=== PATIENT | female | born 1990 | race Caucasian/White ===

== ENCOUNTER 2018-06-18 14:28 | Emergency (ER) | payer SELFPAY ==
[2018-06-18] MEDS ORDERED: Dicyclomine 10 MG Cap PO ONE (15:08)
[2018-06-18] MEDS ORDERED: Sodium Chloride 0.9% 10 ML Syringe FLUSH PRN (15:08)
[2018-06-18] MEDS ORDERED: Sodium Chloride 0.9% 1,000 ML IV ONE (15:08)
[2018-06-18] MEDS ORDERED: Ondansetron 4 MG/2 ML SDV IVPUSH ONE ×2 (15:08→19:03)
--- NOTE | 2018-06-18 15:18 | EDM.PDOC ---
<Lizzette Smith - Last Filed: 06/18/18 17:08> ED HPI GENERAL MEDICAL PROBLEM - General Chief Complaint: Abdominal Pain Stated Complaint: ABD PAIN AND BLOOD IN STOOL Time Seen by Provider: 06/18/18 14:45 Source of Information: Reports: Patient, RN Notes Reviewed History Limitations: Reports: No Limitations - History of Present Illness INITIAL COMMENTS - FREE TEXT/NARRATIVE: Marc is a 27 year old female who presents to the ED for abdominal pain and BRB in her stool. She states that yesterday she developed diarrhea, emesis x1, and suprapubic abdominal pain that would occasionally radiate up to the epigastric region. She states this pain is a constant 6/10 and at times it is 10 /10. She thought that she maybe had some blood in her stool yesterday. She was restless all night with the abdominal pain. Today, she states there was a significant amount of BRB when she used the bathroom, and then had dark black stool. The abdominal pain is made worse with eating and lying down flat. She has tried peptobismol with no relief. Patient states that she has felt bloated for the past two weeks. She was recently treated for bronchitis with methylpredisone which she finished two days ago. She has also taken two xanax to help calm her anxiety in the last two days. She takes OC seasonique and citalopram daily. Patient denies any recent NSAID use. Her mother does suffer from Chron's disease. She denies any sick contacts. She states her immunizations are up to date. Patient denies any fever, chills, nightsweats. Her recent bronchitis has resolved. She denies chest pain, but endorses shortness of breath with acute pain attacks. She has had no vomiting today. She denies any dysuria, urinary urgency or hematuria. Her LMP was 1 mo ago. Patient states that she believes she suffers from IBS as she has diarrhea and constipation that waxes and wanes for the past two years, though this has not been diagnosed by a clinician. Abdominal Pain Score (Numeric/FACES): 8 - Related Data Allergies Allergy/AdvReac Type Severity Reaction Status Date / Time bee pollen Allergy Anaphylactic Verified 06/18/18 14:40 Shock Home Meds: Home Meds Acetaminophen/oxyCODONE [Percocet 325-5 MG] 1 tab PO Q4HR PRN #20 tab 06/18/18 [ Rx] Escitalopram [Lexapro] 10 mg PO DAILY 06/18/18 [History] Ondansetron [Zofran ODT] 4 mg PO Q6H PRN #20 tab.dis 06/18/18 [Rx] Past Medical History Psychiatric History: Reports: Anxiety Social & Family History - Tobacco Use Smoking Status *Q: Never Smoker - Caffeine Use Caffeine Use: Reports: Coffee - Recreational Drug Use Recreational Drug Use: No ED ROS GENERAL - Review of Systems Constitutional: Reports: Decreased Appetite. Denies: Fever, Chills, Night Sweats HEENT: Reports: No Symptoms Respiratory: Reports: No Symptoms Cardiovascular: Reports: No Symptoms Endocrine: Reports: No Symptoms GI/Abdominal: Reports: Abdominal Pain (suprapubic and epigastric at times), Black Stool, Bloody Stool, Diarrhea, Decreased Appetite, Distension, Vomiting ( x1 yesterday) : Reports: No Symptoms Musculoskeletal: Reports: No Symptoms Skin: Reports: No Symptoms Neurological: Reports: No Symptoms Psychiatric: Reports: Anxiety ED EXAM, GI/ABD - Physical Exam Exam: See Below Exam Limited By: No Limitations General Appearance: Alert, WD/WN, Mild Distress Respiratory/Chest: No Respiratory Distress, Lungs Clear, Normal Breath Sounds Cardiovascular: Normal Peripheral Pulses, Regular Rate, Rhythm, No Edema, No Gallop, No JVD, No Murmur, No Rub GI/Abdominal Exam: Normal Bowel Sounds, Soft, Tender (suprapubic and epigastric) . No: Rigid, Rebound, Hernia, Mass Back Exam: Normal Inspection. No: CVA Tenderness (L), CVA Tenderness (R) Neurological: Alert, Oriented, Normal Cognition Psychiatric: Anxious, Tearful Skin Exam: Warm, Dry, Intact, Normal Color Course - Vital Signs Text/Narrative:: Patient denies any recent antibiotics or travel. We performed a fecal occult blood test, which was negative. On digital rectal exam, there was virtually no stool or blood seen. patient does have a skin tag at the 6:00 position, which is not bleeding. Internal exam revels no hemorrhoids. We will test the stool for blood if patient is able to have a bowel movement here in the ED. We will go ahead and CT abdomen and pelvis with oral and IV contrast. Last Recorded V/S: Last Vital Signs Temp 96.8 F 06/18/18 14:37 Pulse 84 06/18/18 14:37 Resp 16 06/18/18 14:37 BP 132/90 06/18/18 14:37 Pulse Ox 99 06/18/18 14:37 - Orders/Labs/Meds Labs: Laboratory Tests 06/18/18 06/18/18 06/18/18 Range/Units 15:05 15:05 15:48 WBC 7.92 (3.98-10.04) K/mm3 RBC 4.63 (3.98-5.22) M/mm3 Hgb 12.3 (11.2-15.7) gm/L Hct 37.6 (34.1-44.9) % MCV 81.2 (79.4-94.8) fl MCH 26.6 (25.6-32.2) pg MCHC 32.7 (32.2-35.5) g/dl RDW Std Deviation 40.5 (36.4-46.3) fL Plt Count 341 (182-369) K/mm3 MPV 10.5 (9.4-12.3) fl Neut % (Auto) 61.3 (34.0-71.1) % Lymph % (Auto) 29.2 (19.3-51.7) % Wilson % (Auto) 6.3 (4.7-12.5) % Eos % (Auto) 3.0 (0.7-5.8) Baso % (Auto) 0.1 (0.1-1.2) % Neut # (Auto) 4.85 (1.56-6.13) K/mm3 Lymph # (Auto) 2.31 (1.18-3.74) K/mm3 Wilson # (Auto) 0.50 H (0.24-0.36) K/mm3 Eos # (Auto) 0.24 (0.04-0.36) K/mm3 Baso # (Auto) 0.01 (0.01-0.08) K/mm3 Sodium 139 (136-145) mEq/L Potassium 3.2 L (3.5-5.1) mEq/L Chloride 105 (98-107) mEq/L Carbon Dioxide 23 (21-32) mEq/L Anion Gap 14.2 (5-15) BUN 11 (7-18) mg/dL Creatinine 0.8 (0.55-1.02) mg/dL Est Cr Clr Drug Dosing 99.76 mL/min Estimated GFR (MDRD) > 60 (>60) mL/min BUN/Creatinine Ratio 13.8 L (14-18) Glucose 111 H (74-106) mg/dL Calcium 8.8 (8.5-10.1) mg/dL Total Bilirubin 0.1 L (0.2-1.0) mg/dL AST 20 (15-37) U/L ALT 23 (14-59) U/L Alkaline Phosphatase 61 (46-116) U/L C-Reactive Protein 1.7 H* (<1.0) mg/dL Total Protein 7.4 (6.4-8.2) g/dl Albumin 3.3 L (3.4-5.0) g/dl Globulin 4.1 gm/dL Albumin/Globulin Ratio 0.8 L (1-2) Lipase 171 (73-393) U/L Urine Color Yellow (Yellow) Urine Appearance Clear (Clear) Urine pH 6.0 (5.0-8.0) Ur Specific Hamilton 1.015 (1.005-1.030) Urine Protein Negative (Negative) Urine Glucose (UA) Negative (Negative) Urine Ketones Negative (Negative) Urine Occult Blood Negative (Negative) Urine Nitrite Negative (Negative) Urine Bilirubin Negative (Negative) Urine Urobilinogen 0.2 (0.2-1.0) Ur Leukocyte Esterase Trace H (Negative) Urine RBC 0-5 (0-5) /hpf Urine WBC 5-10 H (0-5) /hpf Ur Epithelial Cells 5-10 H (0-5) /hpf Urine Bacteria Few (FEW) /hpf Urine Mucus Few (FEW) /hpf Urine HCG, Qual (NEGATIVE) C.difficile [id number]-[id number] C. difficile Tox (PCR) 06/18/18 06/18/18 Range/Units 15:48 17:40 WBC (3.98-10.04) K/mm3 RBC (3.98-5.22) M/mm3 Hgb (11.2-15.7) gm/L Hct (34.1-44.9) % MCV (79.4-94.8) fl MCH (25.6-32.2) pg MCHC (32.2-35.5) g/dl RDW Std Deviation (36.4-46.3) fL Plt Count (182-369) K/mm3 MPV (9.4-12.3) fl Neut % (Auto) (34.0-71.1) % Lymph % (Auto) (19.3-51.7) % Wilson % (Auto) (4.7-12.5) % Eos % (Auto) (0.7-5.8) Baso % (Auto) (0.1-1.2) % Neut # (Auto) (1.56-6.13) K/mm3 Lymph # (Auto) (1.18-3.74) K/mm3 Wilson # (Auto) (0.24-0.36) K/mm3 Eos # (Auto) (0.04-0.36) K/mm3 Baso # (Auto) (0.01-0.08) K/mm3 Sodium (136-145) mEq/L Potassium (3.5-5.1) mEq/L Chloride (98-107) mEq/L Carbon Dioxide (21-32) mEq/L Anion Gap (5-15) BUN (7-18) mg/dL Creatinine (0.55-1.02) mg/dL Est Cr Clr Drug Dosing mL/min Estimated GFR (MDRD) (>60) mL/min BUN/Creatinine Ratio (14-18) Glucose (74-106) mg/dL Calcium (8.5-10.1) mg/dL Total Bilirubin (0.2-1.0) mg/dL AST (15-37) U/L ALT (14-59) U/L Alkaline Phosphatase (46-116) U/L C-Reactive Protein (<1.0) mg/dL Total Protein (6.4-8.2) g/dl Albumin (3.4-5.0) g/dl Globulin gm/dL Albumin/Globulin Ratio (1-2) Lipase (73-393) U/L Urine Color (Yellow) Urine Appearance (Clear) Urine pH (5.0-8.0) Ur Specific Hamilton (1.005-1.030) Urine Protein (Negative) Urine Glucose (UA) (Negative) Urine Ketones (Negative) Urine Occult Blood (Negative) Urine Nitrite (Negative) Urine Bilirubin (Negative) Urine Urobilinogen (0.2-1.0) Ur Leukocyte Esterase (Negative) Urine RBC (0-5) /hpf Urine WBC (0-5) /hpf Ur Epithelial Cells (0-5) /hpf Urine Bacteria (FEW) /hpf Urine Mucus (FEW) /hpf Urine HCG, Qual Negative (NEGATIVE) C.difficile [id number]-[id number] Presumptive negative C. difficile Tox (PCR) Negative Meds: Medications Discontinued Medications Generic Name Dose Route Start Last Admin Trade Name Freq PRN Reason Stop Dose Admin Diatrizoate Meglum/Diatrizoate Sod 90 ml 06/18/18 15:30 06/18/18 16:37 Gastrografin 37% PO 06/18/18 15:31 90 ml ONETIME ONE Administration Dicyclomine HCl 20 mg 06/18/18 15:08 06/18/18 15:20 Bentyl PO 06/18/18 15:09 Not Given ONETIME ONE Famotidine 20 mg 06/18/18 15:37 06/18/18 15:52 Pepcid IVPUSH 06/18/18 15:38 20 mg ONETIME ONE Administration Hydromorphone HCl 1 mg 06/18/18 15:20 06/18/18 15:35 Dilaudid IVPUSH 06/18/18 15:21 1 mg ONETIME ONE Administration Hydromorphone HCl 0.5 mg 06/18/18 17:49 06/18/18 17:54 Dilaudid IVPUSH 06/18/18 17:50 0.5 mg ONETIME ONE Administration Sodium Chloride 1,000 mls @ 999 mls/hr 06/18/18 15:08 06/18/18 15:14 Normal Saline IV 06/18/18 16:08 999 mls/hr ONETIME ONE Administration Iopamidol 100 ml 06/18/18 15:30 06/18/18 16:38 Isovue-300 (61%) IVPUSH 06/18/18 15:31 100 ml ONETIME ONE Administration Ondansetron HCl 4 mg 06/18/18 15:08 06/18/18 15:15 Zofran IVPUSH 06/18/18 15:09 4 mg ONETIME ONE Administration Ondansetron HCl 4 mg 06/18/18 19:03 06/18/18 19:09 Zofran IVPUSH 06/18/18 19:04 4 mg ONETIME ONE Administration Sodium Chloride 10 ml 06/18/18 15:08 06/18/18 15:15 Saline Flush FLUSH 10 ml ASDIRECTED PRN Administration Keep Vein Open Sodium Chloride 10 ml 06/18/18 15:30 06/18/18 16:38 Saline Flush FLUSH 06/18/18 15:31 10 ml ONETIME ONE Administration - Re-Assessments/Exams Free Text/Narrative Re-Assessment/Exam: 06/18/18 17:08 Upon re-evaluation, patient states she is doing better but is still feeling very bloated. She states she feels the need to defecate but cannot produce a BM. She is still having intermittent sharp abdominal pains. Departure - Departure Disposition: Home, Self-Care 01 Clinical Impression: Abdominal pain - Discharge Information Prescriptions: Acetaminophen/oxyCODONE [Percocet 325-5 MG] 1 tab PO Q4HR PRN #20 tab PRN Reason: Pain Ondansetron [Zofran ODT] 4 mg PO Q6H PRN #20 tab.dis PRN Reason: Nausea Instructions: Abdominal Pain, Adult, [id number] Referrals: Anabel Elizondo PA-C [Primary Care Provider] - Forms: ED Department Discharge, ED Return to Work/School Form Additional Instructions: Follow-up with PCP this week for a recheck of your symptoms. you were given medication in the ER that can affect your ability to drive and operate machinery. Do not drive or operate machinery within 10 hours of taking prescription narcotic pain medication. Start a probiotic. These are available [id number]. Zofran 1 tab sublingual every 6-8 hours prn nausea. Recommend a bland diet. [place] diet recommendations include soup broth, bread, applesauce, toast etc. may Percocet 1 tab every 4-6 hours as needed for pain. Percocet is habit- forming, take as few these as needed to control your pain. Do not drive or operate machinery within 10 hours taking Percocet. May take [id number] ibuprofen for less severe pain do not take more than 3200 mg of ibuprofen from all sources in 1 day. Please return to the ER for symptoms change or worsen. <Masha Rosenbaum - Last Filed: 01/24/19 23:53> ED HPI GENERAL MEDICAL PROBLEM - History of Present Illness INITIAL COMMENTS - FREE TEXT/NARRATIVE: I have seen the patient and agree with the HPI as documented by CHAR Valentine ED ROS GENERAL - Review of Systems Review Of Systems: See Below ED EXAM, GI/ABD - Physical Exam Exam: See Below Exam Limited By: No Limitations General Appearance: Alert, WD/WN, Mild Distress GI/Abdominal Exam: Normal Bowel Sounds, Soft Course - Radiology Interpretation Free Text/Narrative:: CT abdomen and pelvis Technique: Multiple axial sections were obtained from above the dome of the diaphragm inferiorly through the pubic symphysis. Intravenous and oral contrast was utilized. Delayed images were obtained through the bladder. Comparison: No prior CT abdomen or pelvis exam. Findings: Visualized lung bases are clear. Liver contains no focal parenchymal abnormality. Spleen appears within normal limits. Soft tissue nodule is seen inferior to the spleen compatible with accessory splenic tissue. Adrenal glands show no nodule. Kidneys show symmetric contrast enhancement without hydronephrosis or mass. Pancreas is within normal limits. Aorta shows no aneurysm. Gallbladder contains no calcified gallstones. No retroperitoneal adenopathy or mesenteric abnormalities are seen. Appendix is seen and is normal in size. No pelvic mass or adenopathy is seen. Delayed images shows contrast within the distal ureters and within the bladder. No bowel dilatation or bowel wall thickening is seen. Bone window settings were reviewed which shows spondylolytic defects at L5-S1. Impression: 1. Incidental spondylolytic defects. 2. CT study of the abdomen and pelvis is otherwise unremarkable. No etiology is identified for the patient's symptoms. - Re-Assessments/Exams Free Text/Narrative Re-Assessment/Exam: 06/18/18 18:51 I have seen the patient and agree with the HPI, ROS and PE as documented by CHAR Valentine. Suspect a viral gastroenteritis. Stool culture obtained. Stool is heme negative. Recommend close follow-up in the clinic. Discharge instructions as documented. Departure - Departure Time of Disposition: 18:52 Condition: Fair - Discharge Information *PRESCRIPTION DRUG MONITORING PROGRAM REVIEWED*: No *COPY OF PRESCRIPTION DRUG MONITORING REPORT IN PATIENT [place]IR[place]: No
[2018-06-18] MEDS ORDERED: HYDROmorphone 1 MG/ML Syringe IVPUSH ONE ×2 (15:20→17:49)
[2018-06-18] MEDS ORDERED: Sodium Chloride 0.9% 10 ML Syringe FLUSH ONE (15:30)
[2018-06-18] MEDS ORDERED: Iopamidol 612 MG/ML 100 ML Bottle IVPUSH ONE (15:30)
[2018-06-18] MEDS ORDERED: Diatrizoate Meglumine/Diatrizoate Sodium 37% 120 ML Bottle PO ONE (15:30)
[2018-06-18] MEDS ORDERED: Famotidine 20 MG/2 ML SDV IVPUSH ONE (15:37)
--- NOTE | 2018-06-18 17:01 | CT ---
CT abdomen and pelvis Technique: Multiple axial sections were obtained from above the dome of the diaphragm inferiorly through the pubic symphysis. Intravenous and oral contrast was utilized. Delayed images were obtained through the bladder. Comparison: No prior CT abdomen or pelvis exam. Findings: Visualized lung bases are clear. Liver contains no focal parenchymal abnormality. Spleen appears within normal limits. Soft tissue nodule is seen inferior to the spleen compatible with accessory splenic tissue. Adrenal glands show no nodule. Kidneys show symmetric contrast enhancement without hydronephrosis or mass. Pancreas is within normal limits. Aorta shows no aneurysm. Gallbladder contains no calcified gallstones. No retroperitoneal adenopathy or mesenteric abnormalities are seen. Appendix is seen and is normal in size. No pelvic mass or adenopathy is seen. Delayed images shows contrast within the distal ureters and within the bladder. No bowel dilatation or bowel wall thickening is seen. Bone window settings were reviewed which shows spondylolytic defects at L5-S1. Impression: 1. Incidental spondylolytic defects. 2. CT study of the abdomen and pelvis is otherwise unremarkable. No etiology is identified for the patient's symptoms. Diagnostic code #2
== END 2018-06-18 19:14 | disposition home or self-care (01) ==
LOC: JD.ED 14:28
DX: R10.13 Epigastric pain (principal); R10.30 Lower abdominal pain, unspecified; F41.9 Anxiety disorder, unspecified; Z91.030 Bee allergy status
CPT/HCPCS: 36415; 74177; 80053; 81001; 81025; 82270; 83690; 85025; 86140; 87046; 87427; 87493; 89055; 96361; 96374; 96375; 96376; 99284; J1170; J2405; J3490; J7040; Q9963; Q9967

== ENCOUNTER 2018-10-23 12:14 | Emergency (ER) | payer MEDICAID, OTHER ==
[2018-10-23] MEDS ORDERED: Hyoscyamine 0.125 MG Tab.SL SL ONE (13:23)
[2018-10-23] MEDS ORDERED: Lactulose Soln 10 GM/15 ML 30 ML UD Cup PO ONE (13:49)
[2018-10-23] MEDS ORDERED: Dicyclomine 10 MG Cap PO ONE (13:50)
--- NOTE | 2018-10-23 13:51 | EDM.PDOC ---
ED HPI GENERAL MEDICAL PROBLEM - General Chief Complaint: Abdominal Pain Stated Complaint: ABDOMINAL PAIN Time Seen by Provider: 10/23/18 12:35 Source of Information: Reports: Patient History Limitations: Reports: No Limitations - History of Present Illness INITIAL COMMENTS - FREE TEXT/NARRATIVE: 28-year-old female presents to reverse her with chief complaints of lower mid abdominal pain. She reports the pain started 4 days ago. She states the pain is a intermittent dull pain. She states that she feels like she is bloated and it difficult for her to wear peanuts. Last menstrual period was 09/24/18. She does state that she had diarrhea a few days ago but since then has had normal bowel movements. She denies any fever or chills no back pain no dysuria. Patient was seen in May for similar symptoms and had a CAT scan which was unremarkable. The patient does have a history of anxiety. Her mother does have Crohn's disease. She is not been evaluated by tax compliance representative. She reports that the pain is better when she lays still and doesn't move. She reports the pain increases when she bends or tries to lift anything up. Onset Date: 10/20/18 Onset Time: 12:00 Duration: Getting Worse, Intermittent Location: Reports: Abdomen Quality: Reports: Ache Severity: Mild Improves with: Reports: Rest Worsens with: Reports: Movement Associated Symptoms: Denies: Fever/Chills, Nausea/Vomiting Lower Abdomen Pain Score (Numeric/FACES): 5 - Related Data Allergies Allergy/AdvReac Type Severity Reaction Status Date / Time bee pollen Allergy Anaphylactic Verified 10/23/18 12:27 Shock Home Meds: Home Meds Escitalopram [Lexapro] 10 mg PO DAILY 06/18/18 [History] Dicyclomine HCl [Bentyl] 10 mg PO QID PRN 5 Days #20 capsule 10/23/18 [Rx] Past Medical History Psychiatric History: Reports: Anxiety - Past Surgical History Musculoskeletal Surgical History: Reports: Other (See Below) Other Musculoskeletal Surgeries/Procedures:: hand surgery Social & Family History - Tobacco Use Smoking Status *Q: Former Smoker Used Tobacco, but Quit: Yes Month/Year Tobacco Last Used: 2013 - Caffeine Use Caffeine Use: Reports: Coffee - Recreational Drug Use Recreational Drug Use: No ED ROS GENERAL - Review of Systems Review Of Systems: See Below Constitutional: Denies: Fever, Chills HEENT: Reports: No Symptoms Respiratory: Denies: Shortness of Breath Cardiovascular: Denies: Chest Pain Endocrine: Reports: No Symptoms GI/Abdominal: Reports: Diarrhea. Denies: Abdominal Pain, Constipation, Difficulty Swallowing, Distension, Nausea, Vomiting : Reports: No Symptoms Musculoskeletal: Denies: Back Pain Skin: Reports: No Symptoms Neurological: Reports: No Symptoms Psychiatric: Reports: No Symptoms Hematologic/Lymphatic: Reports: No Symptoms Immunologic: Reports: No Symptoms ED EXAM, GI/ABD - Physical Exam Exam: See Below Exam Limited By: No Limitations General Appearance: Alert, WD/WN, No Apparent Distress Throat/Mouth: Normal Inspection, Normal Lips, Normal Teeth, Normal Gums, Normal Oropharynx, Normal Voice, No Airway Compromise Head: Atraumatic, Normocephalic Neck: Normal Inspection, Supple, Non-Tender, Full Range of Motion Respiratory/Chest: No Respiratory Distress, Lungs Clear, Normal Breath Sounds, No Accessory Muscle Use, Chest Non-Tender Cardiovascular: Normal Peripheral Pulses, Regular Rate, Rhythm, No Edema, No Gallop, No JVD, No Murmur, No Rub GI/Abdominal Exam: Soft, No Organomegaly, No Distention, No Abnormal Bruit, No Mass, Pelvis Stable, Tender, Other (Hyperactive bowel sounds. ). No: Guarding , Rigid, Rebound Back Exam: Normal Inspection, Full Range of Motion Extremities: Normal Inspection, Normal Range of Motion, Non-Tender, No Pedal Edema, Normal Capillary Refill Neurological: Alert, Oriented Psychiatric: Normal Affect, Normal Mood Skin Exam: Warm, Dry, Intact, Normal Color, No Rash Lymphatic: No Adenopathy Course - Vital Signs Last Recorded V/S: Last Vital Signs Temp 98.7 F 10/23/18 12:24 Pulse 90 10/23/18 12:24 Resp 16 10/23/18 12:24 BP 121/75 10/23/18 12:24 Pulse Ox 100 10/23/18 12:24 - Orders/Labs/Meds Orders: Active Orders 24 hr Category Date Time Status Abdomen 1V Flat [CR] Stat Exams 10/23/18 12:36 Taken Medication Orders Dicyclomine HCl (Bentyl) 10 mg PO ONETIME ONE Stop: 10/23/18 13:51 Labs: Laboratory Tests 05/28/19 05/28/19 05/28/19 Range/Units 12:45 12:45 13:06 WBC 11.08 H (3.98-10.04) K/mm3 RBC 4.22 (3.98-5.22) M/mm3 Hgb 11.3 (11.2-15.7) gm/L Hct 34.6 (34.1-44.9) % MCV 82.0 (79.4-94.8) fl MCH 26.8 (25.6-32.2) pg MCHC 32.7 (32.2-35.5) g/dl RDW Std Deviation 39.6 (36.4-46.3) fL Plt Count 277 (182-369) K/mm3 MPV 10.8 (9.4-12.3) fl Neut % (Auto) 71.5 H (34.0-71.1) % Lymph % (Auto) 20.1 (19.3-51.7) % [place] % (Auto) 6.3 (4.7-12.5) % Eos % (Auto) 1.7 (0.7-5.8) Baso % (Auto) 0.2 (0.1-1.2) % Neut # (Auto) 7.92 H (1.56-6.13) K/mm3 Lymph # (Auto) 2.23 (1.18-3.74) K/mm3 [place] # (Auto) 0.70 H (0.24-0.36) K/mm3 Eos # (Auto) 0.19 (0.04-0.36) K/mm3 Baso # (Auto) 0.02 (0.01-0.08) K/mm3 Sodium (136-145) mEq/L Potassium (3.5-5.1) mEq/L Chloride (98-107) mEq/L Carbon Dioxide (21-32) mEq/L Anion Gap (5-15) BUN (7-18) mg/dL Creatinine (0.55-1.02) mg/dL Est Cr Clr Drug Dosing mL/min Estimated GFR (MDRD) (>60) mL/min BUN/Creatinine Ratio (14-18) Glucose (74-106) mg/dL Calcium (8.5-10.1) mg/dL Total Bilirubin (0.2-1.0) mg/dL AST (15-37) U/L ALT (14-59) U/L Alkaline Phosphatase (46-116) U/L Total Protein (6.4-8.2) g/dl Albumin (3.4-5.0) g/dl Globulin gm/dL Albumin/Globulin Ratio (1-2) Lipase (73-393) U/L Urine Color Yellow (Yellow) Urine Appearance Clear (Clear) Urine pH 6.0 (5.0-8.0) Ur Specific [place] 1.010 (1.005-1.030) Urine Protein Negative (Negative) Urine Glucose (UA) Negative (Negative) Urine Ketones Negative (Negative) Urine Occult Blood Negative (Negative) Urine Nitrite Negative (Negative) Urine Bilirubin Negative (Negative) Urine Urobilinogen 0.2 (0.2-1.0) Ur Leukocyte Esterase Negative (Negative) Urine RBC 0-5 (0-5) /hpf Urine WBC 0-5 (0-5) /hpf Ur Squamous Epith Cells 0-5 (0-5) /hpf Urine Bacteria Few (FEW) /hpf Urine Mucus Few (FEW) /hpf Urine HCG, Qual Negative (NEGATIVE) 10/23/18 Range/Units 13:06 WBC (3.98-10.04) K/mm3 RBC (3.98-5.22) M/mm3 Hgb (11.2-15.7) gm/L Hct (34.1-44.9) % MCV (79.4-94.8) fl MCH (25.6-32.2) pg MCHC (32.2-35.5) g/dl RDW Std Deviation (36.4-46.3) fL Plt Count (182-369) K/mm3 MPV (9.4-12.3) fl Neut % (Auto) (34.0-71.1) % Lymph % (Auto) (19.3-51.7) % [place] % (Auto) (4.7-12.5) % Eos % (Auto) (0.7-5.8) Baso % (Auto) (0.1-1.2) % Neut # (Auto) (1.56-6.13) K/mm3 Lymph # (Auto) (1.18-3.74) K/mm3 [place] # (Auto) (0.24-0.36) K/mm3 Eos # (Auto) (0.04-0.36) K/mm3 Baso # (Auto) (0.01-0.08) K/mm3 Sodium 137 (136-145) mEq/L Potassium 3.6 (3.5-5.1) mEq/L Chloride 101 (98-107) mEq/L Carbon Dioxide 27 (21-32) mEq/L Anion Gap 12.6 (5-15) BUN 12 (7-18) mg/dL Creatinine 0.7 (0.55-1.02) mg/dL Est Cr Clr Drug Dosing 113.01 mL/min Estimated GFR (MDRD) > 60 (>60) mL/min BUN/Creatinine Ratio 17.1 (14-18) Glucose 99 (74-106) mg/dL Calcium 8.7 (8.5-10.1) mg/dL Total Bilirubin 0.2 (0.2-1.0) mg/dL AST 22 (15-37) U/L ALT 30 (14-59) U/L Alkaline Phosphatase 80 (46-116) U/L Total Protein 7.5 (6.4-8.2) g/dl Albumin 3.6 (3.4-5.0) g/dl Globulin 3.9 gm/dL Albumin/Globulin Ratio 0.9 L (1-2) Lipase 96 (73-393) U/L Urine Color (Yellow) Urine Appearance (Clear) Urine pH (5.0-8.0) Ur Specific [place] (1.005-1.030) Urine Protein (Negative) Urine Glucose (UA) (Negative) Urine Ketones (Negative) Urine Occult Blood (Negative) Urine Nitrite (Negative) Urine Bilirubin (Negative) Urine Urobilinogen (0.2-1.0) Ur Leukocyte Esterase (Negative) Urine RBC (0-5) /hpf Urine WBC (0-5) /hpf Ur Squamous Epith Cells (0-5) /hpf Urine Bacteria (FEW) /hpf Urine Mucus (FEW) /hpf Urine HCG, Qual (NEGATIVE) Meds: Medications Generic Name Dose Route Start Last Admin Trade Name Freq PRN Reason Stop Dose Admin Dicyclomine HCl 10 mg 10/23/18 13:50 Bentyl PO 10/23/18 13:51 ONETIME ONE Discontinued Medications Generic Name Dose Route Start Last Admin Trade Name Freq PRN Reason Stop Dose Admin Hyoscyamine 0.125 mg 10/23/18 13:23 10/23/18 13:40 Hyomax-Sl SL 10/23/18 13:24 0.125 mg ONETIME ONE Administration Lactulose 20 gm 10/23/18 13:49 Cephulac PO 10/23/18 13:50 ONETIME ONE - Re-Assessments/Exams Free Text/Narrative Re-Assessment/Exam: 10/23/18 13:49 WBC 11.06 RBC 4.22 hemoglobin and hematocrit 11.3 and 34.6 sodium 137 potassium 3.6 chloride 101 CO2 24/06/11 creatinine 0.7. AST 22 ALT 30 alkaline phosphatase 80 lipase 96. Urinalysis is negative for any infection. HCG is negative. KUB is consistent with constipation there is no acute findings. Departure - Departure Time of Disposition: 14:08 Disposition: Home, Self-Care 01 Clinical Impression: Colitis Constipation Qualifiers: Constipation type: unspecified constipation type Qualified Code(s): K59.00 - Constipation, unspecified - Discharge Information Prescriptions: Dicyclomine HCl [Bentyl] 10 mg PO QID PRN 5 Days #20 capsule PRN Reason: abdominal pain/bloating Instructions: Constipation, Adult, Colitis Referrals: Anabel Elizondo PA-C [Primary Care Provider] - Forms: ED Department Discharge, ED Return to Work/School Form Additional Instructions: You have been diagnosis with colitis. This is a inflammation of the colon. Your KUB (abdominal x-ray revealed constipation). I recommend you increase your fiber and fluid intact. I recommend you follow up with a tax compliance representative for further evaluation and treatment. You have prescribed Bentyl for abdominal pain. You can take this 4 time daily as needed. Follow up with your PCP. Return to the ER for any new or acute worsening symptoms. - My Orders Last 24 Hours: My Active Orders 10/23/18 12:36 Abdomen 1V Flat [CR] Stat - Assessment/Plan Last 24 Hours: My Active Orders 10/23/18 12:36 Abdomen 1V Flat [CR] Stat
--- NOTE | 2018-10-23 14:07 | CR ---
Abdomen: Supine view of the abdomen was obtained. Comparison: No prior abdominal plain film study, previous CT abdomen and pelvis study of 06/18/18. Bowel gas pattern is normal. No abnormal calcifications or soft tissue abnormality is seen. Bony structures appear within normal limits for the patient's age. Impression: 1. Unremarkable supine abdominal x-ray. Diagnostic code #1
== END 2018-10-23 14:30 | disposition home or self-care (01) ==
LOC: JD.ED 12:14
DX: K52.9 Noninfective gastroenteritis and colitis, unspecified (principal); K59.00 Constipation, unspecified; F41.9 Anxiety disorder, unspecified; Z79.899 Other long term (current) drug therapy; Z91.030 Bee allergy status
CPT/HCPCS: 36415; 74018; 80053; 81001; 81025; 83690; 85025; 99284; A9270; 99283

== ENCOUNTER 2019-03-08 17:09 | Emergency (ER) | payer BC ==
[2019-03-08] MEDS ORDERED: Ondansetron 4 MG/2 ML SDV IVPUSH ONE (19:22)
[2019-03-08] MEDS ORDERED: diphenhydrAMINE 50 MG/ML SDV IVPUSH ONE (19:23)
[2019-03-08] MEDS ORDERED: LORazepam 2 MG/ML SDV IVPUSH ONE (19:23)
[2019-03-08] MEDS ORDERED: Sodium Chloride 0.9% 1,000 ML IV SCH (19:30)
--- NOTE | 2019-03-08 20:42 | EDM.PDOC ---
ED HPI GENERAL MEDICAL PROBLEM - General Chief Complaint: Headache Stated Complaint: HEADACHE Time Seen by Provider: 03/08/19 19:03 Source of Information: Reports: Patient History Limitations: Reports: No Limitations - History of Present Illness INITIAL COMMENTS - FREE TEXT/NARRATIVE: Is a 28-year-old female. About 10 days ago she had onset of a pounding type headache behind her left eye. She says she's got a history of migraines but normally she can control them at home. The headache has been waxing and waning and she says it, uses up for a couple of hours and then discharged back again. It is pretty much confined to the left eye and left side of the head. She denies any sharp stabbing pain denies any difficulty in hearing she did have 1 episode where she had some black spots in her eyes but that did not last very long and she does remember when that was. She denies any excessive stress. She tried multiple [id number] medications including Excedrin ibuprofen aspirin tramadol and Tylenol and she went to the walk-in clinic and they gave her Imitrex and she went to see a chiropractor but none of this has helped. He denies any sinus symptoms or upper respiratory symptoms or sore throat. She denies any cough or congestion she has no symptoms of urinary tract infection. He stopped taking her control pills recently because she is trying to get but she is not certain whether she is not. The control pills did not seem to affect her migraine presentation when she started them. She has never had a CT scan of her head for her migraine headaches. No fever or chills. Headache Pain Score (Numeric/FACES): 8 - Related Data Allergies Allergy/AdvReac Type Severity Reaction Status Date / Time bee pollen Allergy Anaphylactic Verified 03/08/19 17:24 Shock Home Meds: Home Meds Escitalopram [Lexapro] 10 mg PO DAILY 06/18/18 [History] LORazepam [Ativan] 0.5 mg PO 10 PRN #10 tablet 03/08/19 [Rx] Ondansetron HCl [Zofran] 4 mg PO Q6H PRN #10 tablet 03/08/19 [Rx] Past Medical History TELEMETRY RN History: Reports: Endometriosis Psychiatric History: Reports: Anxiety - Past Surgical History HEENT Surgical History: Reports: Oral Surgery Musculoskeletal Surgical History: Reports: Other (See Below) Other Musculoskeletal Surgeries/Procedures:: hand surgery Social & Family History - Family History Family Medical History: Noncontributory - Tobacco Use Smoking Status *Q: Never Smoker - Caffeine Use Caffeine Use: Reports: Coffee, Energy Drinks, Soda, Tea - Recreational Drug Use Recreational Drug Use: No ED ROS GENERAL - Review of Systems Review Of Systems: See Below Constitutional: Denies: Fever, Chills HEENT: Denies: Rhinitis, Sinus Problem, Throat Pain Respiratory: Denies: Shortness of Breath, Cough Cardiovascular: Denies: Chest Pain Endocrine: Reports: No Symptoms GI/Abdominal: Reports: Nausea. Denies: Abdominal Pain, Vomiting : Reports: No Symptoms Musculoskeletal: Reports: No Symptoms Skin: Reports: No Symptoms Neurological: Reports: Dizziness, Headache Psychiatric: Reports: No Symptoms Hematologic/Lymphatic: Reports: No Symptoms - Physical Exam Exam: See Below Exam Limited By: No Limitations General Appearance: Alert, WD/WN, Mild Distress Eye Exam: Bilateral Eye: EOMI, Normal Inspection, PERRL Ears: Normal External Exam, Normal Canal, Normal TMs Nose: Normal Inspection Throat/Mouth: Normal Inspection, Normal Lips, Normal Voice, No Airway Compromise Head Exam: Normocephalic Neck: Supple Respiratory/Chest: No Respiratory Distress, Lungs Clear, Normal Breath Sounds Cardiovascular: Regular Rate, Rhythm, No Murmur GI/Abdominal: Soft, Non-Tender Neuro Exam (Abbreviated): Alert, Oriented, CN II-XII Intact, No Motor/Sensory Deficits Back Exam: Normal Inspection, Full Range of Motion Extremities: Normal Inspection, Normal Range of Motion Psychiatric: Normal Affect, Normal Mood Skin Exam: Warm, Dry Course - Vital Signs Last Recorded V/S: Last Vital Signs Temp 99.1 F 03/08/19 17:17 Pulse 79 03/08/19 17:17 Resp 16 03/08/19 17:17 BP 139/88 03/08/19 17:17 Pulse Ox 95 03/08/19 17:17 - Orders/Labs/Meds Orders: Active Orders 24 hr Category Date Time Status Sodium Chloride 0.9% [Normal Saline] 1,000 ml Med 03/08/19 19:30 Active IV ASDIRECTED Medication Orders Sodium Chloride (Normal Saline) 1,000 mls @ 1,000 mls/hr IV ASDIRECTED MORGAN Last Admin: 03/08/19 21:10 Dose: 1,000 mls/hr Labs: Laboratory Tests 03/08/19 03/08/19 03/08/19 Range/Units 20:05 20:05 20:05 WBC 7.41 (3.98-10.04) K/mm3 RBC 5.23 H (3.98-5.22) M/mm3 Hgb 13.7 D (11.2-15.7) gm/dl Hct 41.5 (34.1-44.9) % MCV 79.3 L (79.4-94.8) fl MCH 26.2 (25.6-32.2) pg MCHC 33.0 (32.2-35.5) g/dl RDW Std Deviation 43.7 (36.4-46.3) fL Plt Count 323 (182-369) K/mm3 MPV 10.9 (9.4-12.3) fl Neut % (Auto) 53.1 (34.0-71.1) % Lymph % (Auto) 36.3 (19.3-51.7) % [place] % (Auto) 8.4 (4.7-12.5) % Eos % (Auto) 1.8 (0.7-5.8) Baso % (Auto) 0.3 (0.1-1.2) % Neut # (Auto) 3.94 (1.56-6.13) K/mm3 Lymph # (Auto) 2.69 (1.18-3.74) K/mm3 [place] # (Auto) 0.62 H (0.24-0.36) K/mm3 Eos # (Auto) 0.13 (0.04-0.36) K/mm3 Baso # (Auto) 0.02 (0.01-0.08) K/mm3 Sodium 138 (136-145) mEq/L Potassium 3.4 L (3.5-5.1) mEq/L Chloride 100 (98-107) mEq/L Carbon Dioxide 27 (21-32) mEq/L Anion Gap 14.4 (5-15) BUN 8 (7-18) mg/dL Creatinine 0.8 (0.55-1.02) mg/dL Est Cr Clr Drug Dosing 98.88 mL/min Estimated GFR (MDRD) > 60 (>60) mL/min BUN/Creatinine Ratio 10.0 L (14-18) Glucose 82 (74-106) mg/dL Calcium 9.6 (8.5-10.1) mg/dL Total Bilirubin 0.3 (0.2-1.0) mg/dL AST 27 (15-37) U/L ALT 32 (14-59) U/L Alkaline Phosphatase 89 (46-116) U/L Total Protein 8.6 H (6.4-8.2) g/dl Albumin 4.2 (3.4-5.0) g/dl Globulin 4.4 gm/dL Albumin/Globulin Ratio 1.0 (1-2) HCG, Qual Negative (NEGATIVE) Meds: Medications Generic Name Dose Route Start Last Admin Trade Name Freq PRN Reason Stop Dose Admin Sodium Chloride 1,000 mls @ 1,000 mls/hr 03/08/19 19:30 03/08/19 21:10 Normal Saline IV 1,000 mls/hr ASDIRECTED MORGAN Administration Discontinued Medications Generic Name Dose Route Start Last Admin Trade Name Freq PRN Reason Stop Dose Admin Diphenhydramine HCl 25 mg 03/08/19 19:23 03/08/19 21:09 Benadryl IVPUSH 03/08/19 19:24 25 mg ONETIME ONE Administration Lorazepam 0.5 mg 03/08/19 19:23 03/08/19 21:08 Ativan IVPUSH 03/08/19 19:24 0.5 mg ONETIME ONE Administration Ondansetron HCl 4 mg 03/08/19 19:22 03/08/19 21:09 Zofran IVPUSH 03/08/19 19:23 4 mg ONETIME ONE Administration - Re-Assessments/Exams Free Text/Narrative Re-Assessment/Exam: 03/08/19 21:35 The patient states she is feeling much better and the headache is going away. She wants to go home. She is going to follow-up with her family doctor on Monday for recheck and if she still having symptoms she should consider getting a CT scan of her head since she has not had this done before. The patient understands. 03/08/19 21:39 The patient states that she wants to go home and doesn't want to have the CAT scan done. I believe this is something she needs to have done since this is a persistent headache and it could be cluster migraines. She is to follow-up with her family doctor on Monday for recheck and possible CAT scan and she understands this. Departure - Departure Time of Disposition: 21:36 Disposition: Home, Self-Care 01 Condition: Good Clinical Impression: Migraine - Discharge Information *PRESCRIPTION DRUG MONITORING PROGRAM REVIEWED*: Not Applicable *COPY OF PRESCRIPTION DRUG MONITORING REPORT IN PATIENT [place]: Not Applicable Prescriptions: LORazepam [Ativan] 0.5 mg PO 10 PRN #10 tablet PRN Reason: Headache Ondansetron HCl [Zofran] 4 mg PO Q6H PRN #10 tablet PRN Reason: Nausea Instructions: Migraine Headache, [id number] Referrals: Anabel Elizondo PA-C [Primary Care Provider] - Forms: ED Department Discharge, ED Return to Work/School Form Additional Instructions: Home and sleep as much as possible in a dark room, take Benadryl 25 mg every 6 hours, take the Ativan every 6-8 hours and the Zofran as needed for the nausea and rest and sleep, follow up with your family doctor on Monday for recheck if your headaches are persistent you need to get a CAT scan of your head, return to the ER over the weekend if your symptoms worsen - My Orders Last 24 Hours: My Active Orders 03/08/19 19:30 Sodium Chloride 0.9% [Normal Saline] 1,000 ml IV ASDIRECTED - Assessment/Plan Last 24 Hours: My Active Orders 03/08/19 19:30 Sodium Chloride 0.9% [Normal Saline] 1,000 ml IV ASDIRECTED
== END 2019-03-08 21:50 | disposition home or self-care (01) ==
LOC: JD.ED 17:09
DX: G43.909 Migraine, unspecified, not intractable, without status migrainosus (principal); F41.9 Anxiety disorder, unspecified; Z91.030 Bee allergy status; Z79.899 Other long term (current) drug therapy
CPT/HCPCS: 36415; 80053; 84703; 85025; 96361; 96374; 96375; 99284; J1200; J2060; J2405; J7040

== ENCOUNTER 2019-03-09 18:12 | Emergency (ER) | payer BC ==
[2019-03-09] MEDS ORDERED: Benztropine 1 MG Tab PO STA (18:58)
[2019-03-09] MEDS ORDERED: Ondansetron 4 MG/2 ML SDV IVPUSH ONE (18:58)
[2019-03-09] MEDS ORDERED: Haloperidol Lactate 5 MG/ML SDV IM ONE (18:58)
[2019-03-09] MEDS ORDERED: Sodium Chloride 0.9% 1,000 ML IV ONE (18:58)
--- NOTE | 2019-03-09 19:05 | EDM.PDOC ---
ED HPI GENERAL MEDICAL PROBLEM - General Chief Complaint: Headache Stated Complaint: HEADACHE Time Seen by Provider: 03/09/19 18:27 Source of Information: Reports: Patient, Old Records (ED visit 03/08/2019) History Limitations: Reports: No Limitations - History of Present Illness INITIAL COMMENTS - FREE TEXT/NARRATIVE: Ms. Laurent is a pleasant 28-year-old woman with a past medical history significant for anxiety and depression treated with escitalopram, who states that she has had a bifrontal headache coming and going for the past 10 days. The headache is throbbing in character. She states that she has had nausea, but no emesis. No visual changes, such as flashing lights, wavy lines, or blurry vision, although she states that she had some black dots that moved when she moved her eyes (floaters) on day 3 or 4. She reports both photophobia and phonophobia, although does not appear to be uncomfortable with lighting or sounds in the exam room. She reports bilateral hand tingling on and off for the past 2 days, but no other tingling, numbness, or weakness. The patient appears to be very anxious, is tearful, and it is noted that her oxygen saturation is 100% on room air. The patient states that she has been taking Excedrin to treat her headaches. The patient states that she had a similar headache of shorter duration when she was 15 or 16 years old. She states that she was seen at the [facility], but she does not recall what sort of treatment she may have received. The patient states that she does not get frequent headaches. The patient reports that she stopped her control about 6 weeks ago, with the intention of getting . Medical records indicate that the patient was seen in this ED yesterday, 2018, for the same complaint. Her physical examination, including her neurologic examination, was unremarkable. Workup included a CBC, CMP, and test, all of which were unremarkable. CT scan of her head was offered , but declined. She was treated with IV diphenhydramine, IV lorazepam, IV Zofran , and IV fluid, and her headache promptly resolved. She was discharged home with the recommendation that she take Benadryl 25 mg every 6 hours, Ativan every 6-8 hours, and Zofran as needed for nausea. She was advised that she follow-up to get an outpatient CT of her head. The patient's PCP is DONAL Ludwig. Frontal Headache Pain Score (Numeric/FACES): 10 - Related Data Allergies Allergy/AdvReac Type Severity Reaction Status Date / Time bee pollen Allergy Anaphylactic Verified 03/09/19 18:22 Shock Home Meds: Home Meds Escitalopram [Lexapro] 10 mg PO DAILY 06/18/18 [History] LORazepam [Ativan] 0.5 mg PO 10 PRN #10 tablet 03/08/19 [Rx] Ondansetron HCl [Zofran] 4 mg PO Q6H PRN #10 tablet 03/08/19 [Rx] Orphenadrine [Norflex] 1 tab PO Q12H PRN #14 tab.er 03/09/19 [Rx] Past Medical History [employer] History: Reports: Endometriosis (suspected) Psychiatric History: Reports: Anxiety, Depression - Infectious Disease History Infectious Disease History: Reports: Chicken Pox - Past Surgical History HEENT Surgical History: Reports: Oral Surgery (wisdom teeth extraction) Musculoskeletal Surgical History: Reports: ORIF (right hand) Social & Family History - Family History Family Medical History: Noncontributory - Tobacco Use Smoking Status *Q: Former Smoker Years of Tobacco use: 5 Packs/Tins Daily: 0.2 Month/Year Tobacco Last Used: Quit 2011 - Caffeine Use Caffeine Use: Reports: Coffee, Energy Drinks, Soda, Tea - Alcohol Use Alcohol Use History: Yes Alcohol Use Frequency: Socially - Recreational Drug Use Recreational Drug Use: No - Living Situation & Occupation Living situation: Reports: Single, Alone Occupation: Employed ([employer]) ED ROS GENERAL - Review of Systems Review Of Systems: ROS reveals no pertinent complaints other than HPI. - Physical Exam Exam: See Below Exam Limited By: No Limitations General Appearance: Alert, WD/WN, Anxious (tearful) Eye Exam: Bilateral Eye: EOMI, Normal Inspection, PERRL Ears: Normal External Exam, Normal Canal, Hearing Grossly Normal, Normal TMs Nose: Normal Inspection, Normal Mucosa, No Blood Throat/Mouth: Normal Inspection, Normal Lips, Normal Teeth, Normal Gums, Normal Oropharynx, Normal Voice, No Airway Compromise Head Exam: Atraumatic, Normocephalic Neck: Normal Inspection, Supple, Non-Tender, Full Range of Motion. No: Lymphadenopathy (L), Lymphadenopathy (R) Respiratory/Chest: No Respiratory Distress, Lungs Clear, Normal Breath Sounds, No Accessory Muscle Use Cardiovascular: Normal Peripheral Pulses, Regular Rate, Rhythm, No Edema, No Gallop, No JVD, No Murmur, No Rub GI/Abdominal: Normal Bowel Sounds, Soft, Non-Tender, No Organomegaly, No Distention, No Abnormal Bruit, No Mass (Female) Exam: Deferred Rectal (Female) Exam: Deferred Neuro Exam (Abbreviated): Alert, Oriented, CN II-XII Intact, Normal Cognition, No Motor/Sensory Deficits (the patient reports tingling to both of her hands, but no other sensory abnormalities) Back Exam: Normal Inspection, Full Range of Motion, NT Extremities: Normal Inspection, Normal Range of Motion, No Pedal Edema, Normal Capillary Refill Psychiatric: Anxious, Tearful Skin Exam: Warm, Dry, Intact, Normal Color, No Rash Course - Vital Signs Last Recorded V/S: Last Vital Signs Temp 36.1 C 03/09/19 18:19 Pulse 74 03/09/19 18:19 Resp 19 03/09/19 18:19 BP 122/89 03/09/19 18:19 Pulse Ox 97 03/09/19 18:19 - Orders/Labs/Meds Meds: Medications Discontinued Medications Generic Name Dose Route Start Last Admin Trade Name Carrie PRN Reason Stop Dose Admin Benztropine Mesylate 1 mg 03/09/19 18:58 03/09/19 19:07 Cogentin PO 03/09/19 18:59 1 mg ONETIME STA Administration Haloperidol Lactate 5 mg 03/09/19 18:58 03/09/19 19:07 Haldol IM 03/09/19 18:59 5 mg ONETIME ONE Administration Sodium Chloride 1,000 mls @ 999 mls/hr 03/09/19 18:58 03/09/19 19:06 Normal Saline IV 03/09/19 19:58 999 mls/hr ONETIME ONE Administration Lorazepam 1 mg 03/09/19 19:42 03/09/19 20:09 Ativan IVPUSH 03/09/19 19:43 1 mg ONETIME STA Administration Ondansetron HCl 4 mg 03/09/19 18:58 03/09/19 19:07 Zofran IVPUSH 03/09/19 18:59 4 mg ONETIME ONE Administration Orphenadrine Citrate 100 mg 03/09/19 19:42 03/09/19 20:09 Norflex PO 03/09/19 19:43 100 mg ONETIME STA Administration - Re-Assessments/Exams Free Text/Narrative Re-Assessment/Exam: 03/09/19 19:00 While the patient states that she is suffering from a migraine, clinically, I don't suspect that it is. While it is throbbing in character and she reports nausea, it is bifrontal, not unilateral. She reports photophobia and phonophobia , but showed no adverse effects to my examination of her eyes with a bright light. She reports no visual aura symptoms or genuine neurologic symptoms. Additionally, the patient appears to be quite anxious, and is tearful. Her oxygen saturation is 100% on room air, consistent with hyperventilation, and she is reporting on and off bilateral hand tingling. She had prompt relief of her symptoms last night following IV Ativan. I suspect that the patient's headache is a tension-type headache related to inadequately treated anxiety, however, in order to rule out the possibility of a migraine, she will be initially treated with IM Haldol, along with oral Cogentin, IV fluid, and IV Zofran. If that fails to improve her headache, then I will treat her for anxiety and tension headache with Ativan and Norflex. In the meantime, because the patient has never had an imaging study of her head , and in accordance with current guidelines, the patient will receive a CT scan of her head without contrast. 03/09/19 19:41 CT of the head without contrast is read by Dr. Persaud as: 1. No abnormality is appreciated on noncontrast head CT exam. It has been about 30 minutes since the patient received the IM Haldol, and she reports that she does not feel significantly better. This strongly indicates that the patient's headache is not migrainous in etiology. I will treat her for a tension headache with IV Ativan and oral Norflex. 03/09/19 20:14 Notified that the patient would like to go home. I will discharge her with a prescription for Norflex. Since she has been taking a lot of Excedrin, I am recommending that she try to avoid NSAIDs as much as possible, but stay well hydrated. Departure - Departure Time of Disposition: 20:15 Disposition: Home, Self-Care 01 Condition: Good Clinical Impression: Tension type headache - Discharge Information *PRESCRIPTION DRUG MONITORING PROGRAM REVIEWED*: Not Applicable *COPY OF PRESCRIPTION DRUG MONITORING REPORT IN PATIENT [place]: Not Applicable Prescriptions: Orphenadrine [Norflex] 1 tab PO Q12H PRN #14 tab.er PRN Reason: Muscle Spasm Referrals: Anabel Elizondo PA-C [Primary Care Provider] - Forms: ED Department Discharge Additional Instructions: You were seen in the emergency room for a headache on and off for the past 11 days. Workup in the ER included a CT scan of her head, which returned normal. You were treated for migraine without significant improvement, indicating that the cause of your headache is most likely a tension-type headache. You have been started on the muscle relaxant Norflex. A prescription for Norflex has been sent to the [facility], located in the [facility] grocery store. Take one tablet of Norflex every 12 hours, starting tomorrow morning, 03/10/2019, as prescribed. We recommend that you try to avoid NSAIDs, such as aspirin, ibuprofen (Advil, Motrin), or naproxen (Aleve), as much as possible over the next several days. May sure that you stay well hydrated and get plenty of rest in a dark, quiet place tonight. If your symptoms persist, please follow-up with your PCP, DONAL Ludwig. If any other problems, please do not hesitate to return to the ER.
--- NOTE | 2019-03-09 19:36 | CT ---
Head CT Technique: Multiple axial sections through the brain were obtained. Intravenous contrast was not utilized. Comparison: No prior intracranial imaging is available. Findings: Ventricles along with basal cisterns and sulci over the convexities appear within normal limits for the patient's age. No abnormal parenchymal densities are seen. No evidence of intracranial hemorrhage. No midline shift or mass effect is seen. Bone window settings were reviewed which shows no acute calvarial abnormality. Visualized mastoid sinuses and paranasal sinuses show nothing acute. Impression: 1. No abnormality is appreciated on noncontrast head CT exam. Diagnostic code #1
[2019-03-09] MEDS ORDERED: LORazepam 2 MG/ML SDV IVPUSH STA (19:42)
[2019-03-09] MEDS ORDERED: Orphenadrine 100 MG Tab.ER PO STA (19:42)
== END 2019-03-09 20:26 | disposition home or self-care (01) ==
LOC: JD.ED 18:12
DX: G44.209 Tension-type headache, unspecified, not intractable (principal); F32.9 Major depressive disorder, single episode, unspecified; F41.9 Anxiety disorder, unspecified; Z79.899 Other long term (current) drug therapy; Z91.030 Bee allergy status; Z87.891 Personal history of nicotine dependence
CPT/HCPCS: 70450; 96361; 96372; 96374; 96375; 99284; A9270; J1630; J2060; J2405; J7040; 99283